=== PATIENT | male | born 1940 | race Caucasian/White ===

== ENCOUNTER 2017-06-29 09:25 | Emergency (ER) | payer MEDICARE ==
[2017-06-29] MEDS ORDERED: methylPREDNISolone 125 MG* 2 ML VIAL IM ONE (09:35)
[2017-06-29] MEDS ORDERED: Albuterol 2.5 MG/3 ML NEB.SOL* (0.083%) INH ONE (09:36)
[2017-06-29] MEDS ORDERED: Ipratropium 0.5MG/2.5ML NEB* 0.5 MG/2.5 ML NEB.SOLN INH ONE (09:36)
[2017-06-29 09:47] VITALS: BP 204/86
[2017-06-29] MEDS ORDERED: methylPREDNISolone 125 MG* 2 ML VIAL IV ONE (10:02)
--- NOTE | 2017-06-29 10:07 | UC ---
Shortness of Breath HPI - HPI Summary HPI Summary: STARTED WITH MILD COUGH AND CONGESTION ABOUT A WEEK AGO. HAS SOB THAT HAS BEEN GETTING PROGRESSIVELY WORSE. UNABLE TO SPEAK IN FULL SENTENCES. HAD SUBJECTIVE FEVER INITIALLY BUT NONE IN PAST SEVERAL DAYS. - History of Current Complaint Chief Complaint: UCRespiratory Stated Complaint: SOB Time Seen by Provider: 06/29/17 09:35 Hx Obtained From: Patient, Family/Rod Piler - Onset/Duration: Gradual Onset, Lasting Days, Still Present Timing: Constant Current Severity: Moderate Dyspnea At: Rest Aggrevating Factors: Movement Alleviating Factors: Nothing Associated Signs & Symptoms: Positive: Cough (Nonproductive), Chest Pain w/Cough , Nasal Congestion - Allergy/Home Medications Allergies/Adverse Reactions: Allergies Allergy/AdvReac Type Severity Reaction Status Date / Time No Known Allergies Allergy Verified 06/29/17 09:47 Home Medications: Home Medications Aspirin 81 mg PO DAILY 06/29/17 [History Confirmed 06/29/17] Atenolol TAB* [Tenormin TAB* 50 MG] 50 mg PO DAILY 06/29/17 [History Confirmed 06/29/17] Coenzyme Q10 (Ubidecarenone) [Coq-10] 30 mg PO DAILY 06/29/17 [History Confirmed 06/29/17] Lisinopril [Lisinopril 40 MG-] 40 mg PO DAILY 06/29/17 [History Confirmed ] Multivitamins/Minerals TAB* [Theragran/minerals TAB*] 1 tab PO DAILY 06/29/17 [ History Confirmed 06/29/17] [place]-3 Fatty Acids [Fish Oil] 1,000 mg PO DAILY 06/29/17 [History Confirmed ] PMH/Surg Hx/FS Hx/Imm Hx Cardiovascular History: Hypertension Cancer History: Prostate Cancer - Surgical History Surgical History: Yes Surgery Procedure, Year, and Place: PROSTATECTOMY. SKIN - ARM -SQUAMOUS CELL REMOVED - Family History Known Family History: Positive: Hypertension - Social History Alcohol Use: Occasionally Alcohol Amount: beer Substance Use Type: None Smoking Status (MU): Light Every Day Tobacco Smoker Type: Pipe Review of Systems Constitutional: Fever ENT: Nasal Discharge Respiratory: Cough Cardiovascular: Chest Pain - WITH COUGH Gastrointestinal: Negative All Other Systems Reviewed And Are Negative: Yes Physical Exam Triage Information Reviewed: Yes Appearance: No Pain Distress, Well-Nourished, Other: - WORKING TO BREATHE Vital Signs: Initial Vital Signs Temp 97.2 F 06/29/17 09:44 Pulse 65 06/29/17 09:44 Resp 24 06/29/17 09:44 BP 204/86 06/29/17 09:44 Pulse Ox 97 06/29/17 09:44 Vital Signs Reviewed: Yes Eyes: Positive: Conjunctiva Clear ENT: Positive: Hearing grossly normal Neck: Positive: Supple Respiratory: Positive: Respiratory distress, Decreased breath sounds, Wheezing - MILD INTERMITTENT Diagnostics - Radiology CXR Xray Interpretation: Positive (See Comments) - Blunting of the left costophrenic angle either from left pleural effusion or chronic pleural thickening. Lung palmer are clear. Radiology Interpretation Completed By: Radiologist - EKG Cardiac Rate: NL Cardiac Rhythm: Sinus: Normal - 64BPM Ectopy: None ST Segment: Normal Shortness of Breath Dx - Course Course Of Treatment: PT PLACED ON 2L O2 BY NC. 125ML SOLUMEDROL GIVEN. CXR OBTAINED. NEB STARTED. BP SIGNIFICANTLY ELEVATED. TO [facility] BY AMBULANCE. - Differential Dx/Diagnosis Provider Diagnoses: 1. RESPIRATORY DISTRESS. 2. HYPERTENSIVE URGENCY - Physician Notification/Consults Discussed Patient Care With: Flo Gustafson - TO [facility] BY AMBULANCE Time Discussed With Above Provider: 10:07 Instructed by Provider To: MD Will See In ED Discharge - Discharge Plan Condition: Stable Disposition: TRANS HIGHER LVL OF CARE FAC Referrals: Samuel Mccormick MD [Primary Care Provider] -
--- NOTE | 2017-06-29 10:17 | RAD ---
Indication: Shortness of breath. 2 views of the chest including dual energy PA views demonstrates blunting of left costophrenic angle. This may represent left pleural effusion or pleural thickening. Right lung field is clear. IMPRESSION: Blunting of the left costophrenic angle either from left pleural effusion or chronic pleural thickening. Lung palmer are clear.
== END 2017-06-29 10:20 | disposition short-term general hospital (02) ==
LOC: UCEAST 09:25
DX: R06.03 Acute respiratory distress (principal); I16.0 Hypertensive urgency; Z72.0 Tobacco use; Z72.89 Other problems related to lifestyle
CPT/HCPCS: 71020; 93005; 96374; 99214; G0463; J2930; J7644

== ENCOUNTER 2017-06-29 10:45 | Emergency (ER) | payer MEDICARE ==
[2017-06-29 11:28] LABS: ABS Basophils 0.1 10^3/ul (0-0.2); ABS Eosinophils 0.1 10^3/ul (0-0.6); ABS Lymphocytes 1.7 10^3/ul (1.0-4.8); ABS Neutrophils 9.9 10^3/ul (1.5-7.7); ABS Nucleated RBC 0.02 10^3/ul; Eosinophil % 0.7 % (0-6); Hematocrit 44 % (42-52); Hemoglobin 14.8 g/dl (14.0-18.0); Lymphocyte % 13.3 % (25-47); Mean Corpuscular HGB Conc 34 g/dl (31-36); Mean Corpuscular Hemoglobin 30 pg (27-31); Mean Corpuscular Volume 90 fL (80-94); Mean Platelet Volume 7 um3 (7.4-10.4); Nucleated Red Blood Cells % 0.1; Platelet Count 212 10^3/ul (150-450); Red Cell Distribution Width 13 % (10.5-15); White Blood Count 12.7 10^3/ul (3.5-10.8)
[2017-06-29 11:38] LABS: EGFR Non-African American 76.9 (>60)
--- NOTE | 2017-06-29 13:09 | RAD ---
INDICATION: Blunting left costophrenic angle COMPARISON: 2 view chest x-ray same date TECHNIQUE: Decubitus views were obtained. FINDINGS: There is no significant free flowing pleural fluid in the left chest. The abnormalities appear to represent chronic pleural changes.
[2017-06-29 13:37] VITALS: BP 174/69
--- NOTE | 2017-07-19 18:42 | ED ---
Tommy Kaur Thomas, scribed for Flo Gustafson MD on 06/29/17 at 1132 . Shortness of Breath - HPI Summary HPI Summary: The patient is a 76 year old male presenting to the ED complaining of shortness of breath at rest beginning at 06/17/17 that worsened last night. Patient additionally reports cold symptoms with onset of SOB, wheezing, and difficulty sleeping secondary to SOB. Patient denies chest pain, sputum, and pedal swelling. Patient reports he has not had current symptoms previously and no history of PNA. Patient has HTN controlled with Lisinopril and Atenolol. - History of Current Complaint Chief Complaint: EDShortnessOfBreath Time Seen by Provider: 06/29/17 11:09 Hx Obtained From: Patient Onset/Duration: Lasting Weeks - beginning 06/17/17, Still Present Timing: Constant Dyspnea At: Rest Aggrevating Factors: Nothing Alleviating Factors: Nothing Associated Signs & Symptoms: Cough (Nonproductive), Wheezing - Allergy/Home Medications Allergies/Adverse Reactions: Allergies Allergy/AdvReac Type Severity Reaction Status Date / Time No Known Allergies Allergy Verified 06/29/17 09:47 Home Medications: Home Medications Aspirin EC Low Dose* [Ecotrin EC Low Dose 81 MG*] 81 mg PO QPM 06/29/17 [ History Confirmed 06/29/17] Coenzyme Q10 (Ubidecarenone) [Coenzyme Q-10] 100 mg PO DAILY 06/29/17 [History Confirmed 06/29/17] Lisinopril TAB* [Prinivil TAB*] 40 mg PO DAILY 06/29/17 [History Confirmed 06/29] Red Yeast Rice Extract [Red Yeast Rice] 600 mg PO DAILY 06/29/17 [History Confirmed 06/29/17] PMH/Surg Hx/FS Hx/Imm Hx Previously Healthy: Yes Endocrine/Hematology History: Denies: Hx Diabetes Cardiovascular History: Reports: Hx Hypertension Denies: Hx Pacemaker/ICD History: Denies: Hx Renal Disease Sensory History: Denies: Hx Hearing Aid Psychiatric History: Denies: Hx Panic Disorder - Cancer History Cancer Type, Location and Year: PROSTATE. SQUAMOUS CELLS REMOVED Hx Chemotherapy: No Hx Radiation Therapy: No - Surgical History Surgery Procedure, Year, and Place: PROSTATECTOMY. SKIN - ARM -SQUAMOUS CELL REMOVED Infectious Disease History: No Infectious Disease History: Denies: Traveled Outside the [place] in Last 30 Days - Family History Known Family History: Positive: Hypertension - Social History Alcohol Use: Occasionally Alcohol Amount: beer Substance Use Type: Reports: None Smoking Status (MU): Current Every Day Smoker Type: Pipe Review of Systems Negative: Chest Pain Positive: Shortness Of Breath, Other - Wheezing Negative: Edema All Other Systems Reviewed And Are Negative: Yes Physical Exam - Summary Physical Exam Summary: Appearance: Well-appearing, Well-nourished Skin: Warm, Dry, No rash Eyes: Normal, PERRL, EOMI, sclera anicteric ENT: Normal. No JVD. Acrocyanosis of nose. Neck: Supple, nontender Respiratory: Clear to auscultation Cardiovascular: S1, S2, no murmur, no rub, no gallop Abdomen: Soft, nontender, no organomegaly Bowel sounds: Present Musculoskeletal: Normal, Strength/ROM Intact, no edema, pulses symmetrical Neurological: Normal, A&Ox3, cranial nerves II-XII WNL, follows commands, gait not tested, sensation intact to pin and light touch Psychiatric: affect normal, behavior appropriate, dressed appropriately, judgment intact Triage Information Reviewed: Yes Vital Signs On Initial Exam: Initial Vitals Temp Pulse Resp BP Pulse Ox 98.4 F 72 22 178/57 96 06/29/17 10:45 06/29/17 10:45 06/29/17 10:45 06/29/17 10:45 06/29/17 10:45 Vital Signs Reviewed: Yes - Elina Coma Scale Coma Scale Total: 15 Diagnostics - Vital Signs Vital Signs Temp Pulse Resp BP Pulse Ox 06/29/17 11:00 59 20 163/55 95 06/29/17 10:52 59 20 97 06/29/17 10:51 155/56 06/29/17 10:45 98.4 F 72 22 178/57 96 - Laboratory Result Diagrams: 06/29/17 10:10 06/29/17 10:10 Lab Statement: Any lab studies that have been ordered have been reviewed, and results considered in the medical decision making process. - Radiology CXR Xray Interpretation: No Acute Changes - There is no significant free flowing pleural fluid in the left chest. The abnormalities appear to represent chronic pleural changes. Dr. Gustafson has reviewed this report and agrees Radiology Interpretation Completed By: Radiologist Course/Dx - Course Assessment/Plan: The patient is a 76 year old male presenting to the ED complaining of shortness of breath at rest beginning at 06/17/17 that worsened last night. CXR and bloodwork were obtained. Patient is diagnosed with COPD and acute bronchitis. He will be discharge home with primary care follow up. - Diagnoses Provider Diagnoses: COPD (chronic obstructive pulmonary disease), Acute bronchitis Discharge - Discharge Plan Condition: Stable Disposition: HOME The documentation as recorded by the Tommy yu Thomas accurately reflects the service I personally performed and the decisions made by , Flo Gustafson MD.
== END 2017-06-29 13:54 | disposition home or self-care (01) ==
LOC: ED 10:45
DX: J44.9 Chronic obstructive pulmonary disease, unspecified (principal); J20.9 Acute bronchitis, unspecified; R05 Cough; R06.2 Wheezing; R06.02 Shortness of breath; F17.210 Nicotine dependence, cigarettes, uncomplicated
CPT/HCPCS: 36415; 71010; 80053; 84484; 85025; 85379; 99282